=== PATIENT | female | born 1965 | race Caucasian/White ===

== ENCOUNTER 2016-09-10 14:38 | Emergency (ER) | payer MEDICAID ==
[~2016-09-10] VITALS: Ht 154.9 cm; Wt 59.0 kg
[2016-09-10 14:43] VITALS: BP 151/80
--- NOTE | 2016-09-10 19:06 | NUR ---
PATIENT LEFT WITHOUT BEING SEEN BY DR. PERDOMO. NO FURTHER CARE PROVIDED FOR PATIENT.
== END 2016-09-10 19:06 | disposition left against medical advice (07) ==
LOC: MED 14:38
DX: R10.9 Unspecified abdominal pain (principal); Z53.21 Procedure and treatment not carried out due to patient leaving prior to being seen by health care provider

== ENCOUNTER 2016-09-12 13:00 | Emergency (ER) | payer MEDICAID ==
[~2016-09-12] VITALS: Ht 154.9 cm; Wt 62.6 kg
[2016-09-12 13:15] VITALS: BP 138/90
--- NOTE | 2016-09-12 13:23 | NUR ---
Alessandra walters in ED - 09/12/16 at 1324 by [email or web address] Patient ambulated to bed 4. RN evaluating patient at bedside.
--- NOTE | 2016-09-12 13:23 | NUR ---
Patient ambulated to bed 3. RN evaluating patient at bedside.
--- NOTE | 2016-09-12 13:34 | NUR ---
PATIENT PRESENTS TO ED WITH C/O N/V/D. TRIAGED HERE 2 DAYS AGO FOR SIMILAR SYMPTOMS. HX KIDNEY STONES;PT STATES SHE HAS LOWER BACK PAIN THAT RADIATES TO HER LT LEG. PT IS DX W/ RENAL CALCULI LAST APRIL 2016;SKIN IS PINK/WARM/DRY; AAOX4 WITH EVEN AND STEADY GAIT; LUNGS CLEAR BL; HR EVEN AND REGULAR; PT DENIES ANY FEVER, CP, SOB, OR COUGH AT THIS TIME; PATIENT STATES PAIN OF 7/10 AT THIS TIME; PATIENT POSITIONED FOR COMFORT; HOB ELEVATED; BEDRAILS UP X2; BED DOWN. ER MD MADE AWARE OF PT STATUS.
--- NOTE | 2016-09-12 13:35 | NUR ---
DR GOLDMAN AT BEDSIDE.
[2016-09-12] MEDS ORDERED: KETOROLAC 60 MG/2 ML VIAL IM ONE (13:40)
[2016-09-12] MEDS ORDERED: ONDANSETRON 4 MG/2 ML VIAL IVP ONE (13:40)
[2016-09-12] MEDS ORDERED: ONDANSETRON 4 MG ODT PO ONE (13:45)
[2016-09-12] MEDS ORDERED: MORPHINE SULFATE 4 MG/ML SYR IM ONE (14:10)
--- NOTE | 2016-09-12 14:18 | NUR ---
PT RESTING ON BED;NO ACUTE DISTRESS NOTED;WILL CONTINUE TO MONITOR PT.
--- NOTE | 2016-09-12 14:36 | NUR ---
TRIED TO DISCHARGE PT;BUT PT REQUETSED IF SHE CAN STAY A LITTLE BIT LONGER BECAUSE SHE'S NOT FEELING WELL;NOTIFIED CHARGE NURSE.
--- NOTE | 2016-09-12 15:14 | NUR ---
Patient discharged with v/s stable. Written and verbal after care instructions given and explained.Patient alert, oriented and verbalized understanding of instructions. Ambulatory with steady gait. All questions addressed prior to discharge. ID band removed. Patient advised to follow up with PMD. Rx of IMMODIUM AND ZOFRAN given. Patient educated on indication of medication including possible reaction and side effects. Opportunity to ask questions provided and answered.
[2016-09-12 15:16] VITALS: BP 138/90
== END 2016-09-12 15:14 | disposition home or self-care (01) ==
LOC: MED 13:02
DX: R11.2 Nausea with vomiting, unspecified (principal); R19.7 Diarrhea, unspecified; R10.9 Unspecified abdominal pain; F17.210 Nicotine dependence, cigarettes, uncomplicated; Z88.1 Allergy status to other antibiotic agents; Z87.442 Personal history of urinary calculi; Z90.710 Acquired absence of both cervix and uterus; Z90.49 Acquired absence of other specified parts of digestive tract
CPT/HCPCS: 81002; 96372; 99284; J1885; J2270; S0119